=== PATIENT | male | born 1995 | race Caucasian/White ===

== ENCOUNTER 2018-02-23 17:19 | Emergency (ER) | payer OTHER ==
[~2018-02-23] VITALS: Ht 182.9 cm; Wt 63.3 kg
[2018-02-23 17:44] VITALS: BP 105/78
[2018-02-23] MEDS ORDERED: HYDR-565 PO (17:59)
[2018-02-23] MEDS ORDERED: CLIN-80 PO (18:00)
== END 2018-02-23 18:10 | disposition home or self-care (01) ==
LOC: ER 17:19
DX: K08.89 Other specified disorders of teeth and supporting structures (principal); R51 Headache
CPT/HCPCS: 99283

== ENCOUNTER 2025-05-11 10:37 | Emergency (ER) | payer BC, MEDICAID ==
[~2025-05-11] VITALS: Ht 182.9 cm; Wt 65.9 kg
[~2025-05-11 10:37] MED LIST: CLIN-97 PO
[2025-05-11 10:41] VITALS: BP 117/78; PULSE 82; RESP 18; TEMP 97; O2SAT 100
--- NOTE | 2025-05-11 10:49 | Physician Documentation ---
History of Present Illness ~ Chief Complaint: Sore Throat Stated Complaint: THROAT ABSCESS HPI 29-YEAR-OLD MALE PRESENTS TO THE ED WITH COMPLAINT OF CERVICAL OR THROAT A BSCESS. SEEN AT [facility] THIS MORNING AND SENT HERE TO THE ER FOR EVALUATION. DENIES ANY FEVERS REPORTS PAIN WITH SWALLOWING Day of Onset: May 11, 2025 Medication Reconciliation Allergies: Coded Allergies: No Known Allergies (Unverified , 02/23/18) Scheduled Clindamycin HCL* (Clindamycin HCL*), 1 CAP PO Q6H Past Medical History Past Medical History: No Pertinent History Past Surgical History: noncontributory Drug Use: none Lives In: Home Physical Exam Vital Signs: Temperature: 97.0, Source: Temporal, Heart Rate: 82, Respiratory Rate: 18, BP: 117/78, Pulse Oximetry: 100, Weight: 65.910 Oxygen Flow Rate: 0 Physical Exam General: Alert, no apparent distress. HEENT: PERRL, EOMI, no injection, moist mucous membranes. Neck: Full range of motion. cervical lymphadenopathy Respiratory: Lungs clear, no respiratory distress. Neurologic: Oriented x4. Psychiatric: Normal mood and affect. Skin: Normal color, warm and dry. No edema, no ecchymosis. Progress Results/Orders Results/Orders Completed Orders - JOHN ESPINOZA [employer] Cbc/Diff (05/11/25 10:45) Procalcitonin (05/11/25 10:45) BMP (05/11/25 10:45) Vital Signs 05/11/25 10:41 Temp 97.0 Pulse 82 Resp 18 B/P (MAP) 117/78 Pulse Ox 100 O2 Flow Rate 0 Laboratory Tests Test 05/11/25 11:08 White Blood Count 15.7 H Red Blood Count 5.09 Hemoglobin 15.3 Hematocrit 45.5 Mean Corpuscular Volume 89.3 Mean Corpuscular Hemoglobin 30.1 Mean Corpuscular Hemoglobin Concent 33.7 Red Cell Distribution Width 13.9 Platelet Count 204 Mean Platelet Volume 8.7 Neutrophils (%) (Auto) 87.4 H Lymphocytes (%) (Auto) 6.9 L Monocytes (%) (Auto) 5.0 Eosinophils (%) (Auto) 0.5 Basophils (%) (Auto) 0.2 Neutrophils # (Auto) 13.7 H Lymphocytes # (Auto) 1.1 Monocytes # (Auto) 0.8 Eosinophils # (Auto) 0.1 Basophils # (Auto) 0.0 CBC Comment Sodium Level 142 Potassium Level 3.7 Chloride Level 105 Carbon Dioxide Level 23.5 L Anion Gap 14 Blood Urea Nitrogen 23 H Creatinine 0.91 Estimated GFR/1.73 m2 > 90 BUN/Creatinine Ratio 25.3 H Glucose Level 120 H Calcium Level 9.3 Albumin 4.4 Procalcitonin 0.22 Chemistry Comments Medical Decision Making Findings left lobby w/out treeatment Departure Disposition: 07 LEFT AWOL/ELOPED Impression: Primary Impression: Irritation of pharynx Additional Impression: Swelling of tonsil Referrals: NO PRIMARY CARE PROVIDER (PCP) Signature Scribe Signature: f Attestation: Scribed for Emergency,Department by John Bui NP . 05/11/25 18:27 JOHN ESPINOZA NP May 11, 2025 10:49
[2025-05-11 11:16] LABS: BASOPHILS % (AUTO) 0.2 % (0-1); EOSINOPHILS # (AUTO) 0.1 X10'3 (0-0.9); EOSINOPHILS % (AUTO) 0.5 % (0-6); HEMATOCRIT 45.5 % (42.0-52.0); HEMOGLOBIN 15.3 g/dl (14.0-17.9); LYMPHOCYTES # (AUTO) 1.1 X10'3 (1.1-4.8); LYMPHOCYTES % (AUTO) 6.9 % (21-51); MEAN CORPUSCULAR HEMOGLOBIN 30.1 PG (27.0-31.0); MEAN CORPUSCULAR HGB CONC 33.7 g/dL (33.0-36.5); MEAN CORPUSCULAR VOLUME 89.3 FL (78-98); MEAN PLATELET VOLUME 8.7 FL (7.4-10.4); MONOCYTES # (AUTO) 0.8 X10'3 (0-0.9); NEUTROPHILS # (AUTO) 13.7 X10'3 (1.8-7.7); NEUTROPHILS % (AUTO) 87.4 % (42-75); PLATELET COUNT 204 X10'3 (140-440); RED BLOOD COUNT 5.09 X10'6 (4.70-6.10); RED CELL DISTRIBUTION WIDTH 13.9 % (11.5-14.5); WHITE BLOOD COUNT 15.7 X10'3 (4.5-11.0)
[2025-05-11 11:34] LABS: ALBUMIN 4.4 G/DL (3.4-5.0); ANION GAP 14 (8-16); BLOOD UREA NITROGEN 23 MG/DL (7-18); BUN/CREATININE RATIO 25.3 (10.0-20.0); CALCIUM 9.3 MG/DL (8.5-10.1); CHLORIDE 105 MMOL/L (99-107); CREATININE 0.91 MG/DL (0.60-1.10); GLUCOSE 120 MG/DL (70-104); POTASSIUM 3.7 MMOL/L (3.5-5.1); SODIUM 142 MMOL/L (135-145); TOTAL CARBON DIOXIDE 23.5 MMOL/L (24-32); eCRCL 112 ML/MIN; eGFR > 90 ML/MIN
== END 2025-05-11 13:05 | disposition left against medical advice (07) ==
LOC: ER 10:38
DX: J39.2 Other diseases of pharynx (principal); R22.1 Localized swelling, mass and lump, neck
CPT/HCPCS: 36415; 80048; 84145; 85025; 99283